=== PATIENT | male | born 1965 | race Caucasian/White ===

== ENCOUNTER 2020-07-03 03:35 | Emergency (ER) | payer MEDICAID ==
[~2020-07-03] VITALS: Ht 182.9 cm; Wt 91.7 kg
[2020-07-03 03:42] VITALS: BP 134/78
[2020-07-03] MEDS ORDERED: insulin regular, human 10 units/0.1 ml syringe SQ ONE ×2 (04:25→05:40)
[2020-07-03] MEDS ORDERED: normal saline 1000ML IV soln IVB ONE (04:25)
[2020-07-03 04:48] LABS: ALANINE AMINOTRANSFERASE 36 U/L (12-78); ALBUMIN 3.4 G/DL (3.4-5.0); ALKALINE PHOSPHATASE 92 IU/L (46-116); ANION GAP 7 (8-16); BASOPHILS # (AUTO) 0.1 X10'3 (0-0.2); BASOPHILS % (AUTO) 1.1 % (0-1); BILIRUBIN,TOTAL 0.4 MG/DL (0.1-1.0); BLOOD UREA NITROGEN 16 MG/DL (7-18); BUN/CREATININE RATIO 13.4 (5.4-32.0); CALCIUM 8.9 MG/DL (8.5-10.1); CHLORIDE 103 MMOL/L (99-107); CREATININE 1.19 MG/DL (0.60-1.10); EOSINOPHILS # (AUTO) 0.2 X10'3 (0-0.9); EOSINOPHILS % (AUTO) 2.8 % (0-6); GLUCOSE 423 MG/DL (70-104); HEMATOCRIT 43.3 % (42.0-52.0); HEMOGLOBIN 14.5 g/dl (14.0-17.9); LYMPHOCYTES # (AUTO) 2.2 X10'3 (1.1-4.8); LYMPHOCYTES % (AUTO) 37.9 % (21-51); MEAN CORPUSCULAR HEMOGLOBIN 31.2 PG (27.0-31.0); MEAN CORPUSCULAR HGB CONC 33.5 g/dL (33.0-36.5); MEAN CORPUSCULAR VOLUME 93.1 FL (78-98); MEAN PLATELET VOLUME 10.5 FL (7.4-10.4); MONOCYTES # (AUTO) 0.4 X10'3 (0-0.9); MONOCYTES % (AUTO) 6.2 % (2-12); NEUTROPHILS # (AUTO) 3.1 X10'3 (1.8-7.7); PLATELET COUNT 238 X10'3 (140-440); RED BLOOD COUNT 4.65 X10'6 (4.70-6.10); RED CELL DISTRIBUTION WIDTH 13.2 % (11.5-14.5); SODIUM 139 MMOL/L (135-145); TOTAL CARBON DIOXIDE 28.8 MMOL/L (24-32); TOTAL PROTEIN 6.9 G/DL (6.4-8.2); WHITE BLOOD COUNT 5.9 X10'3 (4.5-11.0); eGFR 63 ML/MIN
[2020-07-03] MEDS ORDERED: METF500T PO (04:49)
[2020-07-03] MEDS ORDERED: GLIP5TAB13 PO (04:49)
--- NOTE | 2020-07-03 04:50 | NUR ---
patient declined IV fluids for PO water intake.
[2020-07-03 04:51] LABS: ASPARTATE AMINO TRANSFERASE 17 U/L (10-37); POTASSIUM 4.4 MMOL/L (3.5-5.1)
[2020-07-03 05:00] LABS: CLARITY,URINE CLEAR (Clear); COLOR,URINE YELLOW (Yellow); GLUCOSE, URINE >=1000 mg/dl (Neg); KETONES,URINE NEGATIVE (Neg); LEUKOCYTE ESTERASE ,URINE NEGATIVE (Neg); NITRITES, URINE NEGATIVE (Neg); OCCULT BLOOD,URINE NEGATIVE (Neg); PROTEIN,URINE NEGATIVE (Neg)
[2020-07-03 05:12] LABS: UA COLLECTION TYPE CLN CATCH MIDSTREAM
[2020-07-03 05:13] LABS: BACTERIA,URINE NONE SEEN /HPF (Neg); RBC,URINE NONE SEEN /HPF (0-2); SQUAMOUS EPITHELIAL CELL,UR FEW /LPF (FEW); WBC,URINE 0-4 /HPF (0-4)
[2020-07-03] MEDS ORDERED: metFORMIN 500mg tablet PO ONE (05:40)
== END 2020-07-03 06:09 | disposition home or self-care (01) ==
LOC: ER 03:36
DX: E11.65 Type 2 diabetes mellitus with hyperglycemia (principal); E11.9 Type 2 diabetes mellitus without complications; F17.200 Nicotine dependence, unspecified, uncomplicated; Z79.899 Other long term (current) drug therapy
CPT/HCPCS: 36415; 80053; 81001; 82948; 85025; 96372; 99284; J1815

== ENCOUNTER 2021-06-19 00:22 | Emergency (ER) | payer MEDICAID ==
[~2021-06-19] VITALS: Ht 182.9 cm; Wt 109.0 kg
[~2021-06-19 00:22] MED LIST: GLIP5TAB13 PO
[2021-06-19 01:18] LABS: CLARITY,URINE CLEAR (Clear); COLOR,URINE YELLOW (Yellow); GLUCOSE, URINE >=1000 mg/dl (Neg); KETONES,URINE NEGATIVE (Neg); LEUKOCYTE ESTERASE ,URINE NEGATIVE (Neg); NITRITES, URINE NEGATIVE (Neg); OCCULT BLOOD,URINE NEGATIVE (Neg); PROTEIN,URINE NEGATIVE (Neg); UROBILINOGEN,URINE 0.2 E.U/dL (0.2-1.0)
[2021-06-19 01:22] LABS: UA COLLECTION TYPE CLN CATCH MIDSTREAM
[2021-06-19 01:25] LABS: BACTERIA,URINE NONE SEEN /HPF (Neg); RBC,URINE NONE SEEN /HPF (0-2); SQUAMOUS EPITHELIAL CELL,UR FEW /LPF (FEW); WBC,URINE NONE SEEN /HPF (0-4)
[2021-06-19 01:40] LABS: BASOPHILS % (AUTO) 0.7 % (0-1); EOSINOPHILS # (AUTO) 0.1 X10'3 (0-0.9); HEMATOCRIT 43.4 % (42.0-52.0); HEMOGLOBIN 15.1 g/dl (14.0-17.9); LYMPHOCYTES # (AUTO) 1.8 X10'3 (1.1-4.8); LYMPHOCYTES % (AUTO) 33.7 % (21-51); MEAN CORPUSCULAR HEMOGLOBIN 31.5 PG (27.0-31.0); MEAN CORPUSCULAR HGB CONC 34.9 g/dL (33.0-36.5); MEAN CORPUSCULAR VOLUME 90.4 FL (78-98); MEAN PLATELET VOLUME 10.3 FL (7.4-10.4); MONOCYTES # (AUTO) 0.4 X10'3 (0-0.9); MONOCYTES % (AUTO) 7.5 % (2-12); NEUTROPHILS # (AUTO) 2.9 X10'3 (1.8-7.7); NEUTROPHILS % (AUTO) 56.1 % (42-75); PLATELET COUNT 219 X10'3 (140-440); RED BLOOD COUNT 4.81 X10'6 (4.70-6.10); RED CELL DISTRIBUTION WIDTH 13.1 % (11.5-14.5); WHITE BLOOD COUNT 5.2 X10'3 (4.5-11.0)
[2021-06-19 01:51] LABS: ALANINE AMINOTRANSFERASE 47 U/L (12-78); ALBUMIN 3.3 G/DL (3.4-5.0); ALBUMIN/GLOBULIN RATIO 0.9 (1.1-1.5); ALKALINE PHOSPHATASE 87 IU/L (46-116); ANION GAP 10 (8-16); ASPARTATE AMINO TRANSFERASE 18 U/L (10-37); BILIRUBIN,TOTAL 0.2 MG/DL (0.1-1.0); BLOOD UREA NITROGEN 25 MG/DL (7-18); BUN/CREATININE RATIO 23.6 (5.4-32.0); CALCIUM 8.8 MG/DL (8.5-10.1); CHLORIDE 101 MMOL/L (99-107); CREATININE 1.06 MG/DL (0.60-1.10); GLUCOSE 311 MG/DL (70-104); POTASSIUM 4.2 MMOL/L (3.5-5.1); SODIUM 135 MMOL/L (135-145); TOTAL CARBON DIOXIDE 23.7 MMOL/L (24-32); TOTAL PROTEIN 6.9 G/DL (6.4-8.2); eGFR 72 ML/MIN
[2021-06-19] MEDS ORDERED: normal saline 1000ML IV soln IVB ONE ×2 (01:55→02:35)
[2021-06-19] MEDS ORDERED: ondansetron/PF 4mg/2ml inj IV ONE ×2 (01:55→02:35)
[2021-06-19] MEDS ORDERED: ketorolac trometh. 30mg/ml inj. IV ONE (01:55)
[2021-06-19 02:57] LABS: LIPASE 334 U/L (73-393)
[2021-06-19 03:07] VITALS: BP 153/87
== END 2021-06-19 03:11 | disposition home or self-care (01) ==
LOC: ER 00:23
DX: U07.1 COVID-19 (principal); R50.9 Fever, unspecified; M79.10 Myalgia, unspecified site; R10.10 Upper abdominal pain, unspecified; R11.2 Nausea with vomiting, unspecified; E11.65 Type 2 diabetes mellitus with hyperglycemia; Z79.899 Other long term (current) drug therapy
CPT/HCPCS: 36415; 80053; 81001; 82948; 83690; 85025; 96361; 96374; 96375; 99284; J1885; J2405; J7030

== ENCOUNTER → 2023-11-02 | Outpatient (CLI) | payer MEDICAID ==
[~2023-11-02] MED LIST changes: -GLIP5TAB13 PO; +GLIP5TAB23 PO
== END | disposition home or self-care (01) ==
LOC: RAD 13:23
PROVIDERS: ATTEND Physician Assistant
DX: I45.89 Other specified conduction disorders (principal); F11.20 Opioid dependence, uncomplicated
CPT/HCPCS: 93005

== ENCOUNTER 2023-12-07 13:50 | Emergency (ER) | payer MEDICAID ==
[~2023-12-07] VITALS: Ht 182.9 cm; Wt 100.0 kg
[2023-12-07] MEDS ORDERED: METF-881 PO (15:12)
[2023-12-07] MEDS ORDERED: GLIP10TA11 PO (15:12)
[2023-12-07] MEDS ORDERED: HYDR-3717 PO (15:13)
[2023-12-07 15:19] VITALS: BP 156/70; PULSE 69; RESP 15; TEMP 98.4; O2SAT 100
== END 2023-12-07 15:20 | disposition home or self-care (01) ==
LOC: ER 13:51
DX: E11.9 Type 2 diabetes mellitus without complications (principal); F41.9 Anxiety disorder, unspecified; Z76.0 Encounter for issue of repeat prescription; Z60.2 Problems related to living alone
CPT/HCPCS: 82948; 99282; 99283

== ENCOUNTER 2024-04-28 03:48 | Emergency (ER) | payer MEDICAID ==
[~2024-04-28] VITALS: Ht 182.9 cm; Wt 90.7 kg
[~2024-04-28 03:48] MED LIST changes: +GLIP10TA18 PO; +[UNRECOGNIZED DRUG - CODE] PO
[2024-04-28 05:20] LABS: BASOPHILS % (AUTO) 0.6 % (0-1); EOSINOPHILS # (AUTO) 0.2 X10'3 (0-0.9); EOSINOPHILS % (AUTO) 2.6 % (0-6); HEMOGLOBIN 14.9 g/dl (14.0-17.9); LYMPHOCYTES # (AUTO) 2.8 X10'3 (1.1-4.8); LYMPHOCYTES % (AUTO) 33.6 % (21-51); MEAN CORPUSCULAR HEMOGLOBIN 31.3 PG (27.0-31.0); MEAN CORPUSCULAR HGB CONC 33.9 g/dL (33.0-36.5); MEAN CORPUSCULAR VOLUME 92.3 FL (78-98); MEAN PLATELET VOLUME 9.3 FL (7.4-10.4); MONOCYTES # (AUTO) 0.4 X10'3 (0-0.9); MONOCYTES % (AUTO) 5.2 % (2-12); NEUTROPHILS # (AUTO) 4.9 X10'3 (1.8-7.7); PLATELET COUNT 368 X10'3 (140-440); RED BLOOD COUNT 4.76 X10'6 (4.70-6.10); RED CELL DISTRIBUTION WIDTH 13.6 % (11.5-14.5); WHITE BLOOD COUNT 8.5 X10'3 (4.5-11.0)
[2024-04-28 05:38] LABS: BILIRUBIN,URINE NEGATIVE (Neg); CLARITY,URINE SLIGHTLY CLOUDY (Clear); COLOR,URINE YELLOW (Yellow); GLUCOSE, URINE NEGATIVE (Neg); KETONES,URINE NEGATIVE (Neg); LEUKOCYTE ESTERASE ,URINE NEGATIVE (Neg); NITRITES, URINE NEGATIVE (Neg); OCCULT BLOOD,URINE NEGATIVE (Neg); PH,URINE 5.5 (4.8-8.0); PROTEIN,URINE NEGATIVE (Neg); UROBILINOGEN,URINE 0.2 E.U/dL (0.2-1.0)
[2024-04-28 05:40] LABS: ALANINE AMINOTRANSFERASE 25 U/L (12-78); ALBUMIN 3.3 G/DL (3.4-5.0); ALBUMIN/GLOBULIN RATIO 0.8 (1.1-1.5); ALKALINE PHOSPHATASE 100 IU/L (46-116); ANION GAP 8 (8-16); ASPARTATE AMINO TRANSFERASE 9 U/L (10-37); BILIRUBIN,TOTAL 0.5 MG/DL (0.1-1.0); BLOOD UREA NITROGEN 11 MG/DL (7-18); BUN/CREATININE RATIO 12.6 (10.0-20.0); CALCIUM 9.2 MG/DL (8.5-10.1); CHLORIDE 102 MMOL/L (99-107); CREATININE 0.87 MG/DL (0.60-1.10); GLUCOSE 147 MG/DL (70-104); LIPASE 11 U/L (16-77); POTASSIUM 3.9 MMOL/L (3.5-5.1); SODIUM 138 MMOL/L (135-145); TOTAL PROTEIN 7.2 G/DL (6.4-8.2); eCRCL 100 ML/MIN; eGFR 90 ML/MIN
[2024-04-28 05:42] LABS: UA COLLECTION TYPE CLN CATCH MIDSTREAM
[2024-04-28 05:58] LABS: BACTERIA,URINE NONE SEEN /HPF (Neg); MUCUS STRANDS NONE SEEN /LPF (Neg); RBC,URINE NONE SEEN /HPF (0-2); SQUAMOUS EPITHELIAL CELL,UR FEW /LPF (FEW); URIC ACID CRYSTALS 3+ /HPF (NEGATIVE); WBC,URINE 0-4 /HPF (0-4)
[2024-04-28] MEDS ORDERED: iohexol 300mg/ml 100ml inj. ONE (08:12)
[2024-04-28] MEDS ORDERED: FAMO-129 PO (09:45)
[2024-04-28] MEDS ORDERED: METO10TA3 PO (09:45)
[2024-04-28] MEDS: normal saline 1000ML IV soln IVB ONE (09:57)
[2024-04-28 10:29] VITALS: BP 125/74; PULSE 89; RESP 16; TEMP 98; O2SAT 98
== END 2024-04-28 10:30 | disposition home or self-care (01) ==
LOC: ER 03:50
DX: R11.2 Nausea with vomiting, unspecified (principal); F17.210 Nicotine dependence, cigarettes, uncomplicated; E11.9 Type 2 diabetes mellitus without complications; E86.0 Dehydration; Z60.2 Problems related to living alone; Z79.84 Long term (current) use of oral hypoglycemic drugs
CPT/HCPCS: 36415; 74177; 80053; 81001; 83690; 85025; 96360; 99285; J7030; Q9967